=== PATIENT | female | born 1930 | race Caucasian/White ===

== ENCOUNTER 2019-06-30 05:19 | Inpatient (IN) | payer MEDICARE, OTHER ==
[~2019-06-30] VITALS: Ht 162.6 cm; Wt 46.5 kg
[2019-06-30] MEDS ORDERED: normal saline 1000ml 1,000 ML IV ONE (05:52)
[2019-06-30] MEDS ORDERED: diltiazem 5mg/ml 5ml inj. IV ONE ×4 (05:55→07:45)
[2019-06-30] MEDS ORDERED: normal saline 1000ML IV soln IVB ONE (06:35)
[2019-06-30 06:39] LABS: BASOPHILS % (AUTO) 0.6 % (0-1); EOSINOPHILS # (AUTO) 0.1 X10'3 (0-0.9); EOSINOPHILS % (AUTO) 1.1 % (0-6); HEMATOCRIT 35.5 % (35.0-45.0); HEMOGLOBIN 11.8 g/dl (12.0-16.0); LYMPHOCYTES # (AUTO) 1.6 X10'3 (1.1-4.8); MEAN CORPUSCULAR HEMOGLOBIN 28.8 PG (27.0-31.0); MEAN CORPUSCULAR HGB CONC 33.2 g/dL (33.0-36.5); MEAN CORPUSCULAR VOLUME 86.6 FL (78-98); MEAN PLATELET VOLUME 7.7 FL (7.4-10.4); MONOCYTES # (AUTO) 0.7 X10'3 (0-0.9); MONOCYTES % (AUTO) 7.9 % (2-12); NEUTROPHILS # (AUTO) 5.9 X10'3 (1.8-7.7); NEUTROPHILS % (AUTO) 71.4 % (42-75); PLATELET COUNT 244 X10'3 (140-440); WHITE BLOOD COUNT 8.3 X10'3 (4.5-11.0)
[2019-06-30 06:45] LABS: PARTIAL THROMBOPLASTIN TIME 28 SECONDS (22-32)
[2019-06-30 06:51] LABS: ETHANOL < 0.010 GM/DL (0.0-0.010); MAGNESIUM 1.9 MG/DL (1.5-2.4)
[2019-06-30 07:40] LABS: ALANINE AMINOTRANSFERASE 63 U/L (12-78); ALBUMIN 3.1 G/DL (3.4-5.0); ALKALINE PHOSPHATASE 127 IU/L (46-116); ANION GAP 8 (8-16); ASPARTATE AMINO TRANSFERASE 56 U/L (10-37); BILIRUBIN,TOTAL 1.1 MG/DL (0.1-1.0); BLOOD UREA NITROGEN 24 MG/DL (7-18); BUN/CREATININE RATIO 32.9 (6.6-38.0); CALCIUM 8.6 MG/DL (8.5-10.1); CHLORIDE 105 MMOL/L (99-107); CREATININE 0.73 MG/DL (0.40-0.90); GLUCOSE 100 MG/DL (70-104); SODIUM 139 MMOL/L (135-145); TOTAL CARBON DIOXIDE 25.8 MMOL/L (24-32); TOTAL PROTEIN 6.2 G/DL (6.4-8.2); eGFR 75 ML/MIN
[2019-06-30] MEDS ORDERED: diltiazem-NS 100mg/100ml 100 ML IV SCH (07:45)
[2019-06-30] MEDS ORDERED: diltiazem-D5W 125mg/125ml 125 ML IV SCH ×2 (07:45→08:15)
[2019-06-30] MEDS ORDERED: enoxaparin 100mg/ml syringe SUBCUT ONE (08:00)
[2019-06-30] MEDS ORDERED: enoxaparin 60mg/0.6ml syringe SUBCUT ONE (08:05)
[2019-06-30] MEDS ORDERED: potassium Cl 20 mEq SR tablet PO PRN (08:15)
[2019-06-30] MEDS ORDERED: acetaminophen 325mg tablet PO PRN (08:15)
[2019-06-30] MEDS ORDERED: mag hydrox/Alum hydrox/simeth 30ml oral suspension PO PRN (08:15)
[2019-06-30] MEDS ORDERED: magnesium 4gm in 100ml NS 100 ML IV PRN (08:15)
[2019-06-30] MEDS ORDERED: magnesium 2GM in 50ml NS 50 ML IV PRN (08:15)
[2019-06-30] MEDS ORDERED: magnesium hydroxide 30ml (MOM) UD suspension PO PRN (08:15)
[2019-06-30] MEDS ORDERED: heparin 10,000 units/1 ML INJ IV ONE (08:15)
[2019-06-30] MEDS ORDERED: ipratropium/albuterol 3ml nebule NEB PRN (08:15)
[2019-06-30] MEDS ORDERED: morphine 2 MG/ML inj. syringe IV PRN ×2 (08:15)
[2019-06-30] MEDS ORDERED: heparin 10,000 units/1 ML INJ IV PRN (08:15)
[2019-06-30] MEDS ORDERED: ondansetron/PF 4mg/2ml inj IV PRN (08:15)
[2019-06-30] MEDS ORDERED: potassium CL 10mEq/100ml bag 100 ML IV PRN ×2 (08:15)
[2019-06-30 08:41] LABS: CLARITY,URINE CLOUDY (Clear); COLOR,URINE YELLOW (Yellow); GLUCOSE, URINE NEGATIVE (Neg); KETONES,URINE TRACE mg/dl (Neg); LEUKOCYTE ESTERASE ,URINE MODERATE (Neg); NITRITES, URINE POSITIVE (Neg); OCCULT BLOOD,URINE TRACE-INTACT (Neg); PROTEIN,URINE 30 mg/dl (Neg); UROBILINOGEN,URINE 0.2 E.U/dL (0.2-1.0)
[2019-06-30 08:50] LABS: UA COLLECTION TYPE STRAIGHT CATH
[2019-06-30 08:51] LABS: BACTERIA,URINE 4+ /HPF (Neg); RBC,URINE 0-2 /HPF (0-2); SQUAMOUS EPITHELIAL CELL,UR NONE SEEN /LPF (FEW); WBC CLUMPS,URINE MANY /HPF (NEGATIVE); WBC,URINE TNTC /HPF (0-4)
[2019-06-30 08:54] LABS: BASOPHILS % (AUTO) 0.4 % (0-1); EOSINOPHILS % (AUTO) 0.3 % (0-6); HEMATOCRIT 32.1 % (35.0-45.0); HEMOGLOBIN 10.8 g/dl (12.0-16.0); LYMPHOCYTES # (AUTO) 1.1 X10'3 (1.1-4.8); LYMPHOCYTES % (AUTO) 13.7 % (21-51); MEAN CORPUSCULAR HEMOGLOBIN 29.1 PG (27.0-31.0); MEAN CORPUSCULAR HGB CONC 33.7 g/dL (33.0-36.5); MEAN CORPUSCULAR VOLUME 86.4 FL (78-98); MEAN PLATELET VOLUME 7.4 FL (7.4-10.4); MONOCYTES # (AUTO) 0.5 X10'3 (0-0.9); MONOCYTES % (AUTO) 5.9 % (2-12); NEUTROPHILS # (AUTO) 6.7 X10'3 (1.8-7.7); NEUTROPHILS % (AUTO) 79.7 % (42-75); PLATELET COUNT 203 X10'3 (140-440); RED BLOOD COUNT 3.71 X10'6 (4.20-5.60); RED CELL DISTRIBUTION WIDTH 15.1 % (11.5-14.5); WHITE BLOOD COUNT 8.4 X10'3 (4.5-11.0)
[2019-06-30] MEDS ORDERED: metoprolol tartrate 1mg/ml inj IV ONE (09:10)
--- NOTE | 2019-06-30 09:28 | NUR ---
PAGER ID: [phone] MESSAGE: [phone]-Tiffanie. Pt's 2nd Trop came back at 3.. Thank You. Venu MORSE [id number]
[2019-06-30] MEDS: heparin 25,000 UNIT/250ml bag 250 ML IV SCH ×2 (09:58→18:08)
[2019-06-30] MEDS: normal saline 1000ml 1,000 ML IV SCH ×3 (10:00→21:01)
[2019-06-30 10:10] VITALS: BP 114/51
[2019-06-30] MEDS ORDERED: atorvastatin 20mg tablet PO SCH ×2 (10:10→10:30)
[2019-06-30] MEDS: metoprolol tartrate 12.5mg (1/2 tablet) PO SCH ×2 (10:44→21:00)
[2019-06-30] MEDS: amiodarone 200mg tablet PO SCH (10:45)
[2019-06-30 11:00] VITALS: BP 97/52
--- NOTE | 2019-06-30 12:48 | NUR ---
PAGER ID: [phone] MESSAGE: Kiya Moreno. 313. 6hr troponin is 10.52. ext [phone] Katarzyna MORSE
[2019-06-30] MEDS ORDERED: ESCI5TAB12 PO (12:54)
[2019-06-30] MEDS ORDERED: ATOR20TA PO (12:54)
[2019-06-30] MEDS ORDERED: LISI10TA4 PO (12:54)
[2019-06-30 15:00] VITALS: BP 114/55
--- NOTE | 2019-06-30 16:03 | NUR ---
PAGER ID: [phone] MESSAGE: [phone]-Tiffanie. Can I add this pt's home Ativan schedule? Venu MORSE 0230
[2019-06-30 18:00] VITALS: BP 163/62
--- NOTE | 2019-06-30 18:00 | NUR ---
Patient in room MED 313. I have received report from MINI Lea, and had the opportunity to ask questions and assume patient care.
--- NOTE | 2019-06-30 18:31 | NUR ---
Problems reprioritized. Patient report given, questions answered & plan of care reviewed with Michelle MORSE.
--- NOTE | 2019-06-30 19:38 | NUR ---
Received critical trop, called answering service for Dr. Saenz.
--- NOTE | 2019-06-30 20:36 | NUR ---
ALEX for Dr. Saenz for elevated trop and run of Vtach at 20:19. Will call answering service again in 20 min
--- NOTE | 2019-06-30 20:43 | NUR ---
Dr. Uribe came by, jluis Mcgee and Gabriella, need to make sure we have betablocker on JAN.
[2019-06-30 21:25] LABS: MAGNESIUM 1.5 MG/DL (1.5-2.4); POTASSIUM 3.2 MMOL/L (3.5-5.1)
[2019-06-30 22:00] VITALS: BP 122/85
[2019-06-30] MEDS: potassium Cl 20 mEq SR tablet PO PRN (23:26)
[2019-07-01 01:39] LABS: BASOPHILS % (AUTO) 0.6 % (0-1); EOSINOPHILS % (AUTO) 0.6 % (0-6); HEMATOCRIT 25.9 % (35.0-45.0); HEMOGLOBIN 8.6 g/dl (12.0-16.0); LYMPHOCYTES # (AUTO) 1.3 X10'3 (1.1-4.8); LYMPHOCYTES % (AUTO) 21.4 % (21-51); MEAN CORPUSCULAR HEMOGLOBIN 28.8 PG (27.0-31.0); MEAN CORPUSCULAR HGB CONC 33.1 g/dL (33.0-36.5); MEAN CORPUSCULAR VOLUME 86.8 FL (78-98); MEAN PLATELET VOLUME 7.5 FL (7.4-10.4); MONOCYTES # (AUTO) 0.4 X10'3 (0-0.9); MONOCYTES % (AUTO) 6.2 % (2-12); NEUTROPHILS # (AUTO) 4.3 X10'3 (1.8-7.7); NEUTROPHILS % (AUTO) 71.2 % (42-75); PLATELET COUNT 154 X10'3 (140-440); RED BLOOD COUNT 2.98 X10'6 (4.20-5.60); RED CELL DISTRIBUTION WIDTH 15.1 % (11.5-14.5); WHITE BLOOD COUNT 6.1 X10'3 (4.5-11.0)
[2019-07-01 01:52] LABS: CHOL/HDL RATIO 1.9 (0.00-4.99); CHOLESTEROL 98 MG/DL (0-200); HDL CHOLESTEROL 51 MG/DL (35-60); LDL CHOLESTEROL 43 MG/DL (50-100); MAGNESIUM 1.4 MG/DL (1.5-2.4); TRIGLYCERIDES 31 MG/DL (20-135)
[2019-07-01 02:00] VITALS: BP 156/71
[2019-07-01] MEDS: potassium Cl 20 mEq SR tablet PO PRN (04:52)
[2019-07-01] MEDS: metoprolol tartrate 12.5mg (1/2 tablet) PO SCH (05:11)
--- NOTE | 2019-07-01 06:00 | NUR ---
Problems reprioritized. Patient report given, questions answered & plan of care reviewed with MINI Morgan.
[2019-07-01 06:30] VITALS: BP 142/56
--- NOTE | 2019-07-01 06:30 | NUR ---
RECEIVED REPORT, AND ASSUMED CARE OF PATIENT.PATIENT AWAKE ,ALERT, AND CONFUSED TO PLACE TIME AND EVENTS THIS AM .LABS SHOW A DROP IN HGB, AND POSITIVE UTI. CALL TO BE PLACED TO DR. TYLER. PATIENT DENIES CHEST PAIN, SOB, AND OR NAUSEA. ABDOMINAL TENDERNESS NOTED AT LEFT LOWER QUADRANT; PER PALPATION.HEPARIN GTT INFUSING AT 600 UNITS PER HOUR. Addendum: 07/01/19 at 0732 by Socorro Mcgarry RN Amended: Links added.
[2019-07-01] MEDS: K and/or MAG REPLACEMENT MC SCH (08:00)
[2019-07-01] MEDS ORDERED: non-formulary drug (Escitalopram Oxalate 1 TAB) PO SCH (08:00)
[2019-07-01] MEDS: clopidogrel 75mg tablet PO SCH (08:00)
[2019-07-01] MEDS ORDERED: lisinopril 10 MG tablet PO SCH ×2 (08:00→21:00)
[2019-07-01] MEDS ORDERED: non-formulary drug (Atorvastatin Calcium (Lipitor) 1 TAB) PO SCH (08:00)
[2019-07-01] MEDS: CITALOpram 10mg tablet PO SCH (08:56)
[2019-07-01] MEDS: atorvastatin 20mg tablet PO SCH (08:57)
[2019-07-01] MEDS: amiodarone 200mg tablet PO SCH (08:57)
[2019-07-01] MEDS: metoprolol tartrate 25mg tablet PO SCH ×2 (08:58→20:20)
[2019-07-01] MEDS: CefTRIAXone/D5W-Rocephin 1gm 50 ML IV SCH (09:01)
[2019-07-01 11:00] VITALS: BP_SYST 154; BP_SYST 162; BP_DIAS 73; BP_DIAS 76
[2019-07-01] MEDS: LORazepam 0.5 MG tablet PO PRN ×2 (12:47→23:56)
[2019-07-01 13:20] LABS: MAGNESIUM 3.1 MG/DL (1.5-2.4); POTASSIUM 4.4 MMOL/L (3.5-5.1)
[2019-07-01] MEDS: normal saline 1000ml 1,000 ML IV SCH ×2 (14:11→22:33)
[2019-07-01 15:00] VITALS: BP 148/69
[2019-07-01 15:23] LABS: HEMOGLOBIN 10.4 g/dl (12.0-16.0); MEAN CORPUSCULAR HEMOGLOBIN 29.2 PG (27.0-31.0); MEAN CORPUSCULAR HGB CONC 33.4 g/dL (33.0-36.5); MEAN CORPUSCULAR VOLUME 87.5 FL (78-98); MEAN PLATELET VOLUME 8.1 FL (7.4-10.4); PLATELET COUNT 200 X10'3 (140-440); RED BLOOD COUNT 3.55 X10'6 (4.20-5.60); RED CELL DISTRIBUTION WIDTH 15.7 % (11.5-14.5); WHITE BLOOD COUNT 7.3 X10'3 (4.5-11.0)
[2019-07-01 18:00] VITALS: BP 178/71
--- NOTE | 2019-07-01 18:00 | NUR ---
Patient in room MED 313. I have received report from MINI Morgan, and had the opportunity to ask questions and assume patient care.
--- NOTE | 2019-07-01 19:51 | NUR ---
PTT 50, Hep drips remain at 600 units/hr per protocol
[2019-07-01] MEDS: heparin 25,000 UNIT/250ml bag 250 ML IV SCH ×2 (19:54→20:17)
[2019-07-01 22:00] VITALS: BP 178/78
[2019-07-02 01:38] LABS: BASOPHILS % (AUTO) 0.4 % (0-1); EOSINOPHILS # (AUTO) 0.1 X10'3 (0-0.9); EOSINOPHILS % (AUTO) 0.7 % (0-6); HEMATOCRIT 30.3 % (35.0-45.0); HEMOGLOBIN 9.9 g/dl (12.0-16.0); LYMPHOCYTES # (AUTO) 1.5 X10'3 (1.1-4.8); LYMPHOCYTES % (AUTO) 18.4 % (21-51); MEAN CORPUSCULAR HEMOGLOBIN 28.7 PG (27.0-31.0); MEAN CORPUSCULAR HGB CONC 32.8 g/dL (33.0-36.5); MEAN CORPUSCULAR VOLUME 87.4 FL (78-98); MEAN PLATELET VOLUME 8.1 FL (7.4-10.4); MONOCYTES # (AUTO) 0.5 X10'3 (0-0.9); MONOCYTES % (AUTO) 6.6 % (2-12); NEUTROPHILS # (AUTO) 6.1 X10'3 (1.8-7.7); NEUTROPHILS % (AUTO) 73.9 % (42-75); PLATELET COUNT 199 X10'3 (140-440); RED BLOOD COUNT 3.46 X10'6 (4.20-5.60); WHITE BLOOD COUNT 8.2 X10'3 (4.5-11.0)
[2019-07-02 01:39] LABS: ALANINE AMINOTRANSFERASE 65 U/L (12-78); ALBUMIN 3.2 G/DL (3.4-5.0); ALKALINE PHOSPHATASE 115 IU/L (46-116); ANION GAP 8 (8-16); ASPARTATE AMINO TRANSFERASE 86 U/L (10-37); BILIRUBIN,TOTAL 0.9 MG/DL (0.1-1.0); BLOOD UREA NITROGEN 30 MG/DL (7-18); BUN/CREATININE RATIO 45.5 (6.6-38.0); CALCIUM 8.3 MG/DL (8.5-10.1); CHLORIDE 103 MMOL/L (99-107); CREATININE 0.66 MG/DL (0.40-0.90); GLUCOSE 96 MG/DL (70-104); SODIUM 136 MMOL/L (135-145); TOTAL CARBON DIOXIDE 24.8 MMOL/L (24-32); TOTAL PROTEIN 6.3 G/DL (6.4-8.2); eGFR 85 ML/MIN
[2019-07-02 02:00] VITALS: BP 164/74
[2019-07-02] MEDS: heparin 25,000 UNIT/250ml bag 250 ML IV SCH ×3 (02:09→13:55)
--- NOTE | 2019-07-02 06:00 | NUR ---
Reviewed and agreed with Leeroy Mcgee RN's charting.
--- NOTE | 2019-07-02 06:00 | NUR ---
Problems reprioritized. Patient report given, questions answered & plan of care reviewed with MINI Hector.
--- NOTE | 2019-07-02 06:30 | NUR ---
Patient in room MED 313. I have received report from Trista MORSE and had the opportunity to ask questions and assume patient care.
[2019-07-02 07:00] VITALS: BP 168/58
[2019-07-02] MEDS: K and/or MAG REPLACEMENT MC SCH (08:00)
[2019-07-02] MEDS: clopidogrel 75mg tablet PO SCH (09:01)
[2019-07-02] MEDS: metoprolol tartrate 25mg tablet PO SCH ×2 (09:05→20:28)
[2019-07-02] MEDS: CITALOpram 10mg tablet PO SCH (09:06)
[2019-07-02] MEDS: CefTRIAXone/D5W-Rocephin 1gm 50 ML IV SCH (09:06)
[2019-07-02] MEDS: amiodarone 200mg tablet PO SCH (09:06)
[2019-07-02] MEDS: atorvastatin 20mg tablet PO SCH (09:06)
[2019-07-02] MEDS: normal saline 1000ml 1,000 ML IV SCH ×2 (09:07→20:26)
[2019-07-02 11:00] VITALS: BP 124/73
--- NOTE | 2019-07-02 13:59 | NUR ---
Paged hospitalist, "Tawny [phone]- Please call re: [phone] heparin drip. nonemergent request." Received callback and orders to stop heparin drip and PTT lab draws. Plavix given this am. Will cont. to monitor.
[2019-07-02 15:00] VITALS: BP 170/77
[2019-07-02] MEDS ORDERED: ziprasidone IM 20mg inj **IM only IM PRN (17:45)
--- NOTE | 2019-07-02 17:45 | NUR ---
Paged hospitalist, "kristy [phone]- please call this nurse re: [phone] ACCE confusion" Wish to ask him for something that will help her rest that's natural and will not increase confusion.
--- NOTE | 2019-07-02 17:54 | NUR ---
Discussed situation re: patient and hospitalist going to order sitter to help redirect and a sleep aid. Patient will be discharging back to [facility] care facility- [facility] tomorrow at 11:15 am.
[2019-07-02 18:00] VITALS: BP 157/73
--- NOTE | 2019-07-02 18:32 | NUR ---
Problems reprioritized. Patient report given, questions answered & plan of care reviewed with Sorin MORSE.
[2019-07-02] MEDS: lisinopril 20mg tablet PO SCH (20:28)
[2019-07-02 22:00] VITALS: BP 145/61
[2019-07-03] MEDS: cephalexin 500mg capsule PO SCH ×4 (00:18→23:13)
[2019-07-03 02:00] VITALS: BP 145/64
[2019-07-03 06:00] VITALS: BP 138/65
[2019-07-03 06:26] LABS: BASOPHILS % (AUTO) 0.7 % (0-1); EOSINOPHILS # (AUTO) 0.1 X10'3 (0-0.9); EOSINOPHILS % (AUTO) 1.2 % (0-6); HEMATOCRIT 22.3 % (35.0-45.0); HEMOGLOBIN 7.5 g/dl (12.0-16.0); LYMPHOCYTES # (AUTO) 1.8 X10'3 (1.1-4.8); LYMPHOCYTES % (AUTO) 31.4 % (21-51); MEAN CORPUSCULAR HEMOGLOBIN 29.5 PG (27.0-31.0); MEAN CORPUSCULAR HGB CONC 33.4 g/dL (33.0-36.5); MEAN CORPUSCULAR VOLUME 88.2 FL (78-98); MEAN PLATELET VOLUME 8.4 FL (7.4-10.4); MONOCYTES # (AUTO) 0.4 X10'3 (0-0.9); MONOCYTES % (AUTO) 7.3 % (2-12); NEUTROPHILS # (AUTO) 3.4 X10'3 (1.8-7.7); NEUTROPHILS % (AUTO) 59.4 % (42-75); PLATELET COUNT 140 X10'3 (140-440); RED BLOOD COUNT 2.53 X10'6 (4.20-5.60); RED CELL DISTRIBUTION WIDTH 15.5 % (11.5-14.5); WHITE BLOOD COUNT 5.6 X10'3 (4.5-11.0)
[2019-07-03] MEDS: normal saline 1000ml 1,000 ML IV SCH (07:53)
[2019-07-03] MEDS: atorvastatin 20mg tablet PO SCH (07:54)
[2019-07-03] MEDS: CITALOpram 10mg tablet PO SCH (07:54)
[2019-07-03] MEDS: amiodarone 200mg tablet PO SCH (07:54)
[2019-07-03] MEDS: clopidogrel 75mg tablet PO SCH (07:54)
[2019-07-03] MEDS: metoprolol tartrate 25mg tablet PO SCH ×2 (07:54→20:19)
[2019-07-03] MEDS: K and/or MAG REPLACEMENT MC SCH (08:00)
[2019-07-03 11:00] VITALS: BP 132/65
--- NOTE | 2019-07-03 11:57 | NUR ---
DR. SHAIKH AT BEDSIDE. REPEAT HEMOGRAM ORDERED. HAWA EXPLAINED TO PATIENT THAT IF NUMBERS ARE BETTER SHE COULD PROBABLY BE DISCHARGED.
[2019-07-03 12:04] LABS: HEMATOCRIT 25.5 % (35.0-45.0); HEMOGLOBIN 8.5 g/dl (12.0-16.0); MEAN CORPUSCULAR HEMOGLOBIN 29.1 PG (27.0-31.0); MEAN CORPUSCULAR HGB CONC 33.2 g/dL (33.0-36.5); MEAN CORPUSCULAR VOLUME 87.8 FL (78-98); MEAN PLATELET VOLUME 7.9 FL (7.4-10.4); PLATELET COUNT 243 X10'3 (140-440); RED BLOOD COUNT 2.91 X10'6 (4.20-5.60); RED CELL DISTRIBUTION WIDTH 15.5 % (11.5-14.5); WHITE BLOOD COUNT 8.3 X10'3 (4.5-11.0)
--- NOTE | 2019-07-03 12:45 | NUR ---
patient stated "i'm going on hunger strike until you people let me go home". Informed patient that the doctor has not written orders. patient stated "i don't care what the doctor thinks, i want to go home so i can in peace there"
--- NOTE | 2019-07-03 12:55 | NUR ---
PAGER ID: [phone] MESSAGE: [phone]: Tiffanie - H/H up to 8.5.5. Daughter, Marilu is POA #[phone]. pt resident of [facility]. if discharged we can have case mgt set up transport for tomorrow. ty nurse tim/art [id number]
[2019-07-03] MEDS ORDERED: METO25TA6 PO (13:09)
[2019-07-03] MEDS ORDERED: AMIO200T61 PO (13:09)
[2019-07-03] MEDS ORDERED: CLOP75TA35 PO (13:09)
[2019-07-03] MEDS ORDERED: APIX5TAB3 PO (13:11)
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
--- NOTE | 2019-07-03 13:30 | NUR ---
PAGER ID: [phone] MESSAGE: [phone]: MALI - do you mind if we send her to surgical or ortho/neuro? with or without telemetry monitoring? ty nurse tim [phone]
--- NOTE | 2019-07-03 14:45 | NUR ---
Pt is not wanting to eat lunch. She states that she is on a hunger strike until she can go home.
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
--- NOTE | 2019-07-03 16:33 | NUR ---
patient is a resident at [facility]. Staff will arrange for follow-up appointment date/time Addendum: 07/03/19 at 1634 by Adelia Li RN Amended: Links added.
--- NOTE | 2019-07-03 16:41 | NUR ---
follow-up appointment with Dr. Saenz Spoke with Sandra about scheduling follow up appointment for this patient. Sandra informed that she will request records from [facility] and will reach out to the patient to schedule the appointment. I informed Sandra that patient is a resident of [facility]. Sandra stated she would make a note in the patients chart.
[2019-07-03 17:46] VITALS: BP 134/65
[2019-07-03 18:00] VITALS: BP 135/55
[2019-07-03] MEDS: lactobacillus rhamnosus 10,000 MMU CELLS/CAPSULE PO SCH (20:18)
[2019-07-03] MEDS: apixaban 2.5mg tablet PO SCH (20:19)
[2019-07-03] MEDS: lisinopril 20mg tablet PO SCH (20:19)
[2019-07-04 05:58] LABS: BASOPHILS % (AUTO) 0.5 % (0-1); EOSINOPHILS % (AUTO) 0.5 % (0-6); HEMATOCRIT 22.1 % (35.0-45.0); HEMOGLOBIN 7.5 g/dl (12.0-16.0); LYMPHOCYTES # (AUTO) 1.7 X10'3 (1.1-4.8); LYMPHOCYTES % (AUTO) 22.2 % (21-51); MEAN CORPUSCULAR HEMOGLOBIN 29.2 PG (27.0-31.0); MEAN CORPUSCULAR HGB CONC 33.7 g/dL (33.0-36.5); MEAN CORPUSCULAR VOLUME 86.6 FL (78-98); MEAN PLATELET VOLUME 7.9 FL (7.4-10.4); MONOCYTES # (AUTO) 0.5 X10'3 (0-0.9); MONOCYTES % (AUTO) 5.9 % (2-12); NEUTROPHILS # (AUTO) 5.5 X10'3 (1.8-7.7); NEUTROPHILS % (AUTO) 70.9 % (42-75); PLATELET COUNT 191 X10'3 (140-440); RED BLOOD COUNT 2.55 X10'6 (4.20-5.60); RED CELL DISTRIBUTION WIDTH 15.4 % (11.5-14.5); WHITE BLOOD COUNT 7.7 X10'3 (4.5-11.0)
[2019-07-04] MEDS: K and/or MAG REPLACEMENT MC SCH (08:00)
[2019-07-04] MEDS: apixaban 2.5mg tablet PO SCH ×2 (08:00→20:00)
[2019-07-04] MEDS: clopidogrel 75mg tablet PO SCH (08:26)
[2019-07-04] MEDS: lactobacillus rhamnosus 10,000 MMU CELLS/CAPSULE PO SCH ×2 (08:26→20:24)
[2019-07-04] MEDS: CITALOpram 10mg tablet PO SCH (08:26)
[2019-07-04] MEDS: atorvastatin 20mg tablet PO SCH (08:26)
[2019-07-04] MEDS: cephalexin 500mg capsule PO SCH ×2 (08:26→16:08)
[2019-07-04] MEDS: amiodarone 200mg tablet PO SCH (08:26)
--- NOTE | 2019-07-04 08:27 | NUR ---
PAGER ID: [phone] MESSAGE: [phone]: MALI: CBC labs were drawn this AM. h/h down again to 7.5/22.1. patient symptomatic.
[2019-07-04] MEDS: metoprolol tartrate 25mg tablet PO SCH ×2 (08:30→20:24)
[2019-07-04 11:26] LABS: HEMATOCRIT 22.6 % (35.0-45.0); HEMOGLOBIN 7.6 g/dl (12.0-16.0); MEAN CORPUSCULAR HEMOGLOBIN 29.3 PG (27.0-31.0); MEAN CORPUSCULAR HGB CONC 33.6 g/dL (33.0-36.5); MEAN CORPUSCULAR VOLUME 87.2 FL (78-98); MEAN PLATELET VOLUME 8.1 FL (7.4-10.4); PLATELET COUNT 201 X10'3 (140-440); RED BLOOD COUNT 2.59 X10'6 (4.20-5.60); RED CELL DISTRIBUTION WIDTH 15.3 % (11.5-14.5); WHITE BLOOD COUNT 9.9 X10'3 (4.5-11.0)
--- NOTE | 2019-07-04 11:32 | NUR ---
PAGER ID: [phone] MESSAGE: 313: MALI - repeat hemogram unchanged from AM lab draw. nurse ART ext [phone]
--- NOTE | 2019-07-04 14:30 | NUR ---
Initial: Pt admit w/ NSTEMI and UTI currently 25% avg PO or refusing meals. AOx2. Ensure pudding TIDWM added for additional protein/kcal needs. No GI symptoms noted. Will continue to monitor. Rec: 1. continue heart healthy/mechanical soft diet 2. ensure pudding TIDWM 3. wt per rx Addendum: 07/04/19 at [address] Amended: Links added.
[2019-07-04 18:00] VITALS: BP 117/48
--- NOTE | 2019-07-04 18:20 | NUR ---
Patient in room MED 313. I have received report from Art, RN and had the opportunity to ask questions and assume patient care.
--- NOTE | 2019-07-04 18:41 | NUR ---
Orientee documentation: I have reviewed and agree with all interventions, assessments performed and documented by MINI Garcia.
--- NOTE | 2019-07-04 19:20 | NUR ---
Patient in room ACCE UNIT. I have received report from Shalonda MORSE and had the opportunity to ask questions and assume patient care when patient arrives.
--- NOTE | 2019-07-04 19:27 | NUR ---
Problems reprioritized. Patient report given, questions answered & plan of care reviewed with MINI Beckham.
[2019-07-04 19:34] LABS: OCCULT BLOOD STOOL POSITIVE (Neg)
[2019-07-04] MEDS: lisinopril 20mg tablet PO SCH (20:25)
[2019-07-04 20:40] VITALS: BP 145/68
[2019-07-04 22:06] LABS: MEAN CORPUSCULAR HEMOGLOBIN 29.6 PG (27.0-31.0); MEAN CORPUSCULAR HGB CONC 33.6 g/dL (33.0-36.5); MEAN PLATELET VOLUME 8.3 FL (7.4-10.4); PLATELET COUNT 191 X10'3 (140-440); RED BLOOD COUNT 2.11 X10'6 (4.20-5.60); RED CELL DISTRIBUTION WIDTH 15.3 % (11.5-14.5); WHITE BLOOD COUNT 7.4 X10'3 (4.5-11.0)
[2019-07-04 22:08] LABS: HEMOGLOBIN 6.2 g/dl (12.0-16.0)
[2019-07-04 22:09] LABS: HEMATOCRIT 18.6 % (35.0-45.0)
[2019-07-04 23:08] VITALS: BP 145/68
[2019-07-04 23:43] VITALS: BP 126/62
[2019-07-05] VITALS (22 sets, daily range): BP systolic 107–169; BP diastolic 43–80
[2019-07-05] MEDS: pantoprazole 40MG/NS 100ML BAG 100 ML IV SCH ×6 (00:26→22:27)
[2019-07-05] MEDS: cephalexin 500mg capsule PO SCH ×3 (00:34→16:50)
--- NOTE | 2019-07-05 06:24 | NUR ---
Problems reprioritized. Patient report given, questions answered & plan of care reviewed with Evangelina and Adelia RNS.
--- NOTE | 2019-07-05 06:30 | NUR ---
Patient in room [facility] 354. I have received report from Chapincito MORSE and had the opportunity to ask questions and assume patient care.
[2019-07-05] MEDS: K and/or MAG REPLACEMENT MC SCH (08:00)
[2019-07-05] MEDS: CITALOpram 10mg tablet PO SCH (08:00)
[2019-07-05] MEDS: amiodarone 200mg tablet PO SCH (09:40)
[2019-07-05] MEDS: lactobacillus rhamnosus 10,000 MMU CELLS/CAPSULE PO SCH ×2 (09:40→21:00)
[2019-07-05] MEDS: atorvastatin 20mg tablet PO SCH (09:41)
[2019-07-05] MEDS: metoprolol tartrate 25mg tablet PO SCH ×2 (09:42→21:01)
[2019-07-05 10:32] LABS: BASOPHILS % (AUTO) 0.5 % (0-1); EOSINOPHILS % (AUTO) 0.2 % (0-6); HEMATOCRIT 29.1 % (35.0-45.0); HEMOGLOBIN 9.8 g/dl (12.0-16.0); LYMPHOCYTES # (AUTO) 1.1 X10'3 (1.1-4.8); LYMPHOCYTES % (AUTO) 17.2 % (21-51); MEAN CORPUSCULAR HEMOGLOBIN 30.3 PG (27.0-31.0); MEAN CORPUSCULAR HGB CONC 33.8 g/dL (33.0-36.5); MEAN CORPUSCULAR VOLUME 89.5 FL (78-98); MEAN PLATELET VOLUME 8.1 FL (7.4-10.4); MONOCYTES # (AUTO) 0.4 X10'3 (0-0.9); MONOCYTES % (AUTO) 6.7 % (2-12); NEUTROPHILS % (AUTO) 75.4 % (42-75); PLATELET COUNT 166 X10'3 (140-440); RED BLOOD COUNT 3.25 X10'6 (4.20-5.60); RED CELL DISTRIBUTION WIDTH 15.1 % (11.5-14.5); WHITE BLOOD COUNT 6.7 X10'3 (4.5-11.0)
[2019-07-05] MEDS ORDERED: fentaNYL/PF 50MCG/1 ML 2ML syringe ONE (12:22)
[2019-07-05] MEDS ORDERED: LIDOcaine Viscous 15ml cup ONE (12:23)
[2019-07-05] MEDS ORDERED: MIDAZolam 5mg/5ml vial ONE (12:23)
[2019-07-05] MEDS ORDERED: PEG 3350/Na sulf,bicarb,Cl/KCl oral sol 4 liter bottle PO ONE (13:25)
[2019-07-05] MEDS ORDERED: magnesium citrate 296ml oral solution PO ONE (13:25)
[2019-07-05] MEDS: bisacodyl 5mg tablet.DR PO SCH ×2 (14:34→21:00)
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
--- NOTE | 2019-07-05 18:26 | NUR ---
Problems reprioritized. Patient report given, questions answered & plan of care reviewed with Sahra Garcia RN.
--- NOTE | 2019-07-05 18:36 | NUR ---
Patient in room [facility] 354. I have received report from MINI Delvalle and had the opportunity to ask questions and assume patient care. Addendum: 07/05/19 at 1837 by Donna Fuller RN Amended: Links added.
[2019-07-05] MEDS: lisinopril 20mg tablet PO SCH (21:01)
[2019-07-06] VITALS (9 sets, daily range): BP systolic 122–168; BP diastolic 55–89
[2019-07-06] MEDS: pantoprazole 40MG/NS 100ML BAG 100 ML IV SCH ×3 (04:26→10:28)
--- NOTE | 2019-07-06 06:44 | NUR ---
Patient in room [facility] 354. I have received report from Sahra Garcia RN and had the opportunity to ask questions and assume patient care.
--- NOTE | 2019-07-06 06:45 | NUR ---
Problems reprioritized. Patient report given, questions answered & plan of care reviewed with MINI Mcclain.
[2019-07-06] MEDS: atorvastatin 20mg tablet PO SCH (07:58)
[2019-07-06] MEDS: lactobacillus rhamnosus 10,000 MMU CELLS/CAPSULE PO SCH ×2 (07:58→19:43)
[2019-07-06] MEDS: bisacodyl 5mg tablet.DR PO SCH ×2 (07:58→19:47)
[2019-07-06] MEDS: amiodarone 200mg tablet PO SCH (07:58)
[2019-07-06] MEDS: CITALOpram 10mg tablet PO SCH (07:58)
[2019-07-06] MEDS: metoprolol tartrate 25mg tablet PO SCH ×2 (07:59→19:43)
[2019-07-06] MEDS: K and/or MAG REPLACEMENT MC SCH (08:00)
--- NOTE | 2019-07-06 10:56 | NUR ---
Family here to visit patient, encouraged family to encourage patient to drink Golytly to complete colonoscopy today. BM is turning towards a yellow tone and could be seen through if held up in a glass.
[2019-07-06 11:42] LABS: HEMATOCRIT 30.2 % (35.0-45.0); HEMOGLOBIN 10.3 g/dl (12.0-16.0); MEAN CORPUSCULAR HEMOGLOBIN 30.4 PG (27.0-31.0); MEAN CORPUSCULAR HGB CONC 33.9 g/dL (33.0-36.5); MEAN CORPUSCULAR VOLUME 89.6 FL (78-98); MEAN PLATELET VOLUME 8.1 FL (7.4-10.4); PLATELET COUNT 200 X10'3 (140-440); RED BLOOD COUNT 3.37 X10'6 (4.20-5.60); RED CELL DISTRIBUTION WIDTH 15.4 % (11.5-14.5)
--- NOTE | 2019-07-06 12:11 | NUR ---
Patient off the unit to GI for Colonoscopy
[2019-07-06] MEDS ORDERED: fentaNYL/PF 50MCG/1 ML 2ML syringe ONE (12:18)
[2019-07-06] MEDS ORDERED: MIDAZolam 5mg/5ml vial ONE (12:18)
--- NOTE | 2019-07-06 14:30 | NUR ---
PHONED DAUGHTER IN [place], NOTIFIED HER OF THE FINDINGS AND RECOMMENDATIONS OF COLONOSCOPY. APPRECIATIVE OF CALL.
--- NOTE | 2019-07-06 16:16 | NUR ---
Paged Dr. Painting concerning patients Protonix gtt whether to continue or dc.
--- NOTE | 2019-07-06 18:17 | NUR ---
Received report from MINI Mcclain. Patient is awake and alert on room air, in no apparent distress. Having dinner. Call light and items of frequent use within reach. Will continue to monitor.
--- NOTE | 2019-07-06 18:21 | NUR ---
Problems reprioritized. Patient report given, questions answered & plan of care reviewed with Allison MORSE.
[2019-07-06] MEDS: lisinopril 20mg tablet PO SCH (19:47)
[2019-07-07] VITALS: BP 144/57
[2019-07-07 06:30] VITALS: BP 135/56
--- NOTE | 2019-07-07 06:30 | NUR ---
Patient in room [facility] 354. I have received report from MINI Cooper and had the opportunity to ask questions and assume patient care.
--- NOTE | 2019-07-07 06:38 | NUR ---
Problems reprioritized. Patient report given, questions answered & plan of care reviewed with MINI Wick.
[2019-07-07] MEDS: K and/or MAG REPLACEMENT MC SCH (07:11)
[2019-07-07] MEDS: lisinopril 20mg tablet PO SCH (09:30)
[2019-07-07] MEDS: atorvastatin 20mg tablet PO SCH (09:30)
[2019-07-07] MEDS: amiodarone 200mg tablet PO SCH (09:30)
[2019-07-07] MEDS: lactobacillus rhamnosus 10,000 MMU CELLS/CAPSULE PO SCH (09:30)
[2019-07-07] MEDS: metoprolol tartrate 25mg tablet PO SCH (09:31)
[2019-07-07] MEDS: bisacodyl 5mg tablet.DR PO SCH (09:31)
[2019-07-07] MEDS: CITALOpram 10mg tablet PO SCH (09:31)
[2019-07-07 11:00] VITALS: BP 153/58
[2019-07-07 12:50] LABS: HEMATOCRIT 29.2 % (35.0-45.0); HEMOGLOBIN 9.8 g/dl (12.0-16.0); MEAN CORPUSCULAR HEMOGLOBIN 30.8 PG (27.0-31.0); MEAN CORPUSCULAR HGB CONC 33.7 g/dL (33.0-36.5); MEAN CORPUSCULAR VOLUME 91.2 FL (78-98); MEAN PLATELET VOLUME 8.2 FL (7.4-10.4); PLATELET COUNT 207 X10'3 (140-440); RED CELL DISTRIBUTION WIDTH 15.6 % (11.5-14.5); WHITE BLOOD COUNT 8.3 X10'3 (4.5-11.0)
--- NOTE | 2019-07-07 16:10 | NUR ---
DC inst provided to pt. IV DC'd, tip intact. All belongings sent w/pt. [employer] [employer] personnel assisted pt via WC to van.
== END 2019-07-07 16:11 | DRG 377 ==
LOC: ER 05:20 → MED 3N 10:05 → CMPBEDREQ 21:12 → SUR 3N 07-04 20:33
PROVIDERS: ADMIT Family Medicine; ATTEND Family Medicine
PROC: 30233P1 Transfusion of Nonautologous Frozen Red Cells into Peripheral Vein, Percutaneous Approach (ICD-10-PCS; principal; 2019-07-04)
PROC: 30233P1 Transfusion of Nonautologous Frozen Red Cells into Peripheral Vein, Percutaneous Approach (ICD-10-PCS; 2019-07-05)
PROC: 0DB68ZX Excision of Stomach, Via Natural or Artificial Opening Endoscopic, Diagnostic (ICD-10-PCS; 2019-07-05)
PROC: 0DJD8ZZ Inspection of Lower Intestinal Tract, Via Natural or Artificial Opening Endoscopic (ICD-10-PCS; 2019-07-06)
DX: K57.31 Diverticulosis of large intestine without perforation or abscess with bleeding (principal); I21.4 Non-ST elevation (NSTEMI) myocardial infarction; N39.0 Urinary tract infection, site not specified; D62 Acute posthemorrhagic anemia; I47.2 Ventricular tachycardia; E78.5 Hyperlipidemia, unspecified; F03.90 Unspecified dementia, unspecified severity, without behavioral disturbance, psychotic disturbance, mood disturbance, and anxiety; I08.3 Combined rheumatic disorders of mitral, aortic and tricuspid valves; B96.20 Unspecified Escherichia coli [E. coli] as the cause of diseases classified elsewhere; I10 Essential (primary) hypertension; K59.09 Other constipation; I48.0 Paroxysmal atrial fibrillation; Z90.49 Acquired absence of other specified parts of digestive tract; Z88.6 Allergy status to analgesic agent; Z91.018 Allergy to other foods; Z79.899 Other long term (current) drug therapy; Z82.49 Family history of ischemic heart disease and other diseases of the circulatory system; Z87.891 Personal history of nicotine dependence; Z90.710 Acquired absence of both cervix and uterus; Z90.722 Acquired absence of ovaries, bilateral; Z84.89 Family history of other specified conditions
CPT/HCPCS: 36415; 43239; 45378; 71045; 74018; 80053; 80061; 80320; 81001; 82272; 83735; 83880; 84132; 84484; 85025; 85027; 85610; 85730; 86885; 86900; 86901; 86920; 87077; 87081; 87088; 87186; 88305; 88342; 92508; 92616; 93005; 93306; 94667; 94668; 94760; 97116; 97161; 97530; 99152; 99153; 99285; A4615; A4620; C9113; G0378; J0696; J1644; J1650; J2250; J3010; J3475; J3490; J7030; J7040; P9016

== ENCOUNTER 2019-10-28 15:03 | Emergency (ER) | payer MEDICARE, OTHER ==
[~2019-10-28] VITALS: Ht 160 cm; Wt 49.0 kg
[~2019-10-28 15:03] MED LIST: AMIO200T61 PO; ATOR20TA PO; ESCI5TAB12 PO; LISI10TA4 PO; METO25TA6 PO
[2019-10-28 15:16] VITALS: BP 151/56
--- NOTE | 2019-10-28 17:07 | NUR ---
Report given to ISIDRO Ngo, Spoke with [employer], ETA for transport 1730.
== END 2019-10-28 18:51 | disposition home or self-care (01) ==
LOC: ER 15:03
DX: S32.10XA Unspecified fracture of sacrum, initial encounter for closed fracture (principal); I48.91 Unspecified atrial fibrillation; G30.9 Alzheimer's disease, unspecified; F02.80 Dementia in other diseases classified elsewhere, unspecified severity, without behavioral disturbance, psychotic disturbance, mood disturbance, and anxiety; Z88.6 Allergy status to analgesic agent; Z91.018 Allergy to other foods; Z79.899 Other long term (current) drug therapy; W18.39XA Other fall on same level, initial encounter; Y93.89 Activity, other specified; Y92.89 Other specified places as the place of occurrence of the external cause; Y99.8 Other external cause status
CPT/HCPCS: 70450; 72131; 72192; 99285

== ENCOUNTER 2020-06-08 16:08 | Inpatient (IN) | payer MEDICARE ==
[~2020-06-08] VITALS: Ht 157.5 cm; Wt 50.2 kg
[2020-06-08 17:41] LABS: ALANINE AMINOTRANSFERASE 14 U/L (12-78); ALBUMIN 3.7 G/DL (3.4-5.0); ALBUMIN/GLOBULIN RATIO 0.9 (1.1-1.5); ALKALINE PHOSPHATASE 82 IU/L (46-116); ANION GAP 9 (8-16); ASPARTATE AMINO TRANSFERASE 23 U/L (10-37); BILIRUBIN,TOTAL 0.8 MG/DL (0.1-1.0); BLOOD UREA NITROGEN 27 MG/DL (7-18); BUN/CREATININE RATIO 25.5 (6.6-38.0); CALCIUM 9.6 MG/DL (8.5-10.1); CHLORIDE 102 MMOL/L (99-107); CREATININE 1.06 MG/DL (0.40-0.90); GLUCOSE 86 MG/DL (70-104); SODIUM 136 MMOL/L (135-145); TOTAL CARBON DIOXIDE 25.2 MMOL/L (24-32); TOTAL PROTEIN 7.6 G/DL (6.4-8.2); eGFR 49 ML/MIN
[2020-06-08] MEDS ORDERED: DIVA125C2 PO (17:42)
[2020-06-08] MEDS ORDERED: METO25TA6 PO (17:42)
[2020-06-08] MEDS ORDERED: LORA-269 PO (17:42)
[2020-06-08] MEDS ORDERED: CETI10TA18 PO (17:42)
[2020-06-08] MEDS ORDERED: LEVO750T21 PO (17:42)
[2020-06-08] MEDS ORDERED: OLAN5TAB26 PO (17:42)
[2020-06-08] MEDS ORDERED: AMIO200T27 PO (17:42)
[2020-06-08] MEDS ORDERED: LEVO25TA7 PO (17:42)
[2020-06-08] MEDS ORDERED: HYDR-4383 PO (17:42)
[2020-06-08] MEDS ORDERED: DONE5TAB7 PO (17:42)
[2020-06-08] MEDS ORDERED: LISI40TA4 PO (17:42)
[2020-06-08] MEDS ORDERED: AMLO5TAB PO (17:42)
[2020-06-08] MEDS ORDERED: CITA10TA9 PO (17:42)
[2020-06-08] MEDS ORDERED: magnesium hydroxide 30ml (MOM) UD suspension PO PRN (18:30)
[2020-06-08] MEDS ORDERED: mag hydrox/Alum hydrox/simeth 30ml oral suspension PO PRN (18:30)
[2020-06-08] MEDS ORDERED: magnesium Cl slow-release 64mg tablet PO PRN (18:30)
[2020-06-08] MEDS ORDERED: metoclopramide 5 mg/ml inj IV PRN (18:30)
[2020-06-08] MEDS ORDERED: magnesium 4gm in 100ml NS 100 ML IV PRN (18:30)
[2020-06-08] MEDS ORDERED: ondansetron/PF 4mg/2ml inj IV PRN (18:30)
[2020-06-08] MEDS ORDERED: HYDROcodone/acetaminophen 5mg/325mg tablet PO PRN ×2 (18:30→18:40)
[2020-06-08] MEDS ORDERED: potassium Cl 20 mEq SR tablet PO PRN (18:30)
[2020-06-08] MEDS ORDERED: acetaminophen 325mg tablet PO PRN ×2 (18:30)
[2020-06-08] MEDS ORDERED: ipratropium/albuterol 3ml nebule NEB PRN (18:30)
[2020-06-08] MEDS ORDERED: HYDROcodone/acetaminophen 10/325mg tab PO PRN (18:30)
[2020-06-08] MEDS ORDERED: HYDROmorphone inj. 0.5 MG/0.5 ML DISP.SYRIN IV PRN (18:30)
[2020-06-08] MEDS ORDERED: potassium CL 10mEq/100ml bag 100 ML IV PRN ×2 (18:30)
[2020-06-08] MEDS ORDERED: bisacodyl 10mg suppository rectal RC PRN (18:30)
[2020-06-08] MEDS ORDERED: magnesium 2GM in 50ml NS 50 ML IV PRN (18:30)
[2020-06-08] MEDS ORDERED: acetaminophen 650mg rectal suppository RC PRN (18:30)
[2020-06-08 18:51] LABS: BASOPHILS % (AUTO) 0.6 % (0-1); EOSINOPHILS % (AUTO) 0.6 % (0-6); HEMATOCRIT 40.7 % (35.0-45.0); HEMOGLOBIN 13.2 g/dl (12.0-16.0); LYMPHOCYTES # (AUTO) 1.4 X10'3 (1.1-4.8); LYMPHOCYTES % (AUTO) 19.2 % (21-51); MEAN CORPUSCULAR HEMOGLOBIN 28.8 PG (27.0-31.0); MEAN CORPUSCULAR HGB CONC 32.4 g/dL (33.0-36.5); MEAN CORPUSCULAR VOLUME 88.9 FL (78-98); MEAN PLATELET VOLUME 7.8 FL (7.4-10.4); MONOCYTES # (AUTO) 0.5 X10'3 (0-0.9); NEUTROPHILS # (AUTO) 5.5 X10'3 (1.8-7.7); NEUTROPHILS % (AUTO) 72.6 % (42-75); PLATELET COUNT 191 X10'3 (140-440); RED BLOOD COUNT 4.58 X10'6 (4.20-5.60); RED CELL DISTRIBUTION WIDTH 16.1 % (11.5-14.5); WHITE BLOOD COUNT 7.6 X10'3 (4.5-11.0)
[2020-06-08] MEDS: K and/or MAG REPLACEMENT MC SCH (19:30)
[2020-06-08 19:48] VITALS: BP 188/71
[2020-06-08 20:14] LABS: VALPROATE 44.8 UG/ML (50-100)
[2020-06-08] MEDS: metoprolol tartrate 25mg tablet PO SCH (20:19)
[2020-06-08] MEDS: divalproex sod 125mg sprinkle cap PO SCH (20:19)
[2020-06-08] MEDS: lisinopril 20mg tablet PO SCH (20:19)
[2020-06-08] MEDS: heparin, porcine 5000 units/ml vial SQ SCH (20:20)
[2020-06-08] MEDS: furosemide 20 MG/2 ML vial IV SCH (20:20)
[2020-06-08] MEDS: CefTRIAXone/D5W-Rocephin 1gm 50 ML IV SCH (20:21)
[2020-06-08] MEDS: azithromycin/NS 500mg/250ml 250 ML IV SCH (20:21)
[2020-06-08] MEDS: ipratropium/albuterol 3ml nebule NEB SCH ×2 (20:38→23:00)
[2020-06-08] MEDS ORDERED: temazepam 15mg capsule PO PRN (21:00)
[2020-06-08 22:00] VITALS: BP 99/42
[2020-06-09 06:00] VITALS: BP 178/75
--- NOTE | 2020-06-09 06:18 | NUR ---
REPORT GIVEN TO MINI JEFFERSON.
[2020-06-09 06:54] LABS: BASOPHILS % (AUTO) 0.6 % (0-1); EOSINOPHILS # (AUTO) 0.1 X10'3 (0-0.9); EOSINOPHILS % (AUTO) 1.4 % (0-6); HEMATOCRIT 35.6 % (35.0-45.0); HEMOGLOBIN 11.4 g/dl (12.0-16.0); LYMPHOCYTES # (AUTO) 1.1 X10'3 (1.1-4.8); LYMPHOCYTES % (AUTO) 20.1 % (21-51); MEAN CORPUSCULAR HEMOGLOBIN 28.2 PG (27.0-31.0); MEAN CORPUSCULAR HGB CONC 32.1 g/dL (33.0-36.5); MEAN CORPUSCULAR VOLUME 87.9 FL (78-98); MEAN PLATELET VOLUME 7.8 FL (7.4-10.4); MONOCYTES # (AUTO) 0.6 X10'3 (0-0.9); MONOCYTES % (AUTO) 10.3 % (2-12); NEUTROPHILS # (AUTO) 3.8 X10'3 (1.8-7.7); NEUTROPHILS % (AUTO) 67.6 % (42-75); PLATELET COUNT 166 X10'3 (140-440); RED BLOOD COUNT 4.05 X10'6 (4.20-5.60); RED CELL DISTRIBUTION WIDTH 15.7 % (11.5-14.5); WHITE BLOOD COUNT 5.6 X10'3 (4.5-11.0)
[2020-06-09] MEDS: ipratropium/albuterol 3ml nebule NEB SCH ×5 (07:05→23:00)
[2020-06-09 07:15] LABS: ALANINE AMINOTRANSFERASE 18 U/L (12-78); ALBUMIN/GLOBULIN RATIO 0.9 (1.1-1.5); ALKALINE PHOSPHATASE 61 IU/L (46-116); ANION GAP 8 (8-16); ASPARTATE AMINO TRANSFERASE 21 U/L (10-37); BILIRUBIN,TOTAL 0.6 MG/DL (0.1-1.0); BLOOD UREA NITROGEN 23 MG/DL (7-18); BUN/CREATININE RATIO 22.3 (6.6-38.0); CALCIUM 8.8 MG/DL (8.5-10.1); CHLORIDE 104 MMOL/L (99-107); CREATININE 1.03 MG/DL (0.40-0.90); GLUCOSE 78 MG/DL (70-104); MAGNESIUM 1.8 MG/DL (1.5-2.4); POTASSIUM 3.5 MMOL/L (3.5-5.1); SODIUM 140 MMOL/L (135-145); TOTAL CARBON DIOXIDE 28.5 MMOL/L (24-32); TOTAL PROTEIN 6.4 G/DL (6.4-8.2); eGFR 51 ML/MIN
[2020-06-09] MEDS: K and/or MAG REPLACEMENT MC SCH ×2 (08:00→20:00)
[2020-06-09] MEDS ORDERED: levoTHYROXINE 25mcg tablet PO SCH (08:00)
[2020-06-09 10:00] VITALS: BP 138/54
[2020-06-09] MEDS: CefTRIAXone/D5W-Rocephin 1gm 50 ML IV SCH (11:20)
[2020-06-09] MEDS: lisinopril 20mg tablet PO SCH (11:20)
[2020-06-09] MEDS: azithromycin/NS 500mg/250ml 250 ML IV SCH (11:20)
[2020-06-09] MEDS: metoprolol tartrate 25mg tablet PO SCH ×2 (11:21→22:34)
[2020-06-09] MEDS: amiodarone 200mg tablet PO SCH (11:21)
[2020-06-09] MEDS: divalproex sod 125mg sprinkle cap PO SCH ×2 (11:21→22:33)
[2020-06-09] MEDS: CITALOpram 10mg tablet PO SCH (11:21)
[2020-06-09] MEDS: levoTHYROXINE 75mcg tablet PO SCH (11:21)
[2020-06-09] MEDS: amLODIPine 5mg tablet PO SCH (11:22)
[2020-06-09] MEDS: furosemide 20 MG/2 ML vial IV SCH ×2 (11:22→22:51)
[2020-06-09] MEDS: heparin, porcine 5000 units/ml vial SQ SCH ×2 (11:23→22:35)
[2020-06-09 18:00] VITALS: BP 142/59
--- NOTE | 2020-06-09 18:14 | NUR ---
Problems reprioritized. Patient report given, questions answered & plan of care reviewed with PALMA MORSE.
[2020-06-09 22:00] VITALS: BP 125/50
[2020-06-09] MEDS: lactobacillus rhamnosus 10,000 MMU CELLS/CAPSULE PO SCH (22:33)
[2020-06-10 06:00] VITALS: BP 120/47
[2020-06-10 06:32] LABS: BASOPHILS # (AUTO) 0.1 X10'3 (0-0.2); BASOPHILS % (AUTO) 0.9 % (0-1); EOSINOPHILS # (AUTO) 0.1 X10'3 (0-0.9); HEMATOCRIT 33.2 % (35.0-45.0); LYMPHOCYTES # (AUTO) 1.2 X10'3 (1.1-4.8); LYMPHOCYTES % (AUTO) 21.5 % (21-51); MEAN CORPUSCULAR HGB CONC 33.1 g/dL (33.0-36.5); MEAN CORPUSCULAR VOLUME 87.4 FL (78-98); MEAN PLATELET VOLUME 7.6 FL (7.4-10.4); MONOCYTES # (AUTO) 0.6 X10'3 (0-0.9); MONOCYTES % (AUTO) 11.4 % (2-12); NEUTROPHILS # (AUTO) 3.7 X10'3 (1.8-7.7); NEUTROPHILS % (AUTO) 65.2 % (42-75); PLATELET COUNT 160 X10'3 (140-440); RED CELL DISTRIBUTION WIDTH 15.6 % (11.5-14.5); WHITE BLOOD COUNT 5.7 X10'3 (4.5-11.0)
[2020-06-10] MEDS: ipratropium/albuterol 3ml nebule NEB SCH ×4 (07:00→19:25)
[2020-06-10 07:09] LABS: ALANINE AMINOTRANSFERASE 15 U/L (12-78); ALBUMIN/GLOBULIN RATIO 0.9 (1.1-1.5); ALKALINE PHOSPHATASE 59 IU/L (46-116); ANION GAP 9 (8-16); ASPARTATE AMINO TRANSFERASE 17 U/L (10-37); BILIRUBIN,TOTAL 0.5 MG/DL (0.1-1.0); BLOOD UREA NITROGEN 23 MG/DL (7-18); BUN/CREATININE RATIO 21.9 (6.6-38.0); CALCIUM 8.8 MG/DL (8.5-10.1); CHLORIDE 106 MMOL/L (99-107); CREATININE 1.05 MG/DL (0.40-0.90); GLUCOSE 94 MG/DL (70-104); MAGNESIUM 1.8 MG/DL (1.5-2.4); POTASSIUM 3.2 MMOL/L (3.5-5.1); SODIUM 143 MMOL/L (135-145); TOTAL CARBON DIOXIDE 28.5 MMOL/L (24-32); TOTAL PROTEIN 6.3 G/DL (6.4-8.2); eGFR 49 ML/MIN
--- NOTE | 2020-06-10 07:34 | NUR ---
Patient refused SVN tx @ this time. No Shortness of breath noted. pt resting comfortably c/o headache and wants to sleep NAD 93% 1lpm 53hr Addendum: 06/10/20 at 0735 by Darya Browning RT Amended: Links added.
[2020-06-10] MEDS: metoprolol tartrate 25mg tablet PO SCH ×2 (08:00→20:00)
[2020-06-10] MEDS: CefTRIAXone/D5W-Rocephin 1gm 50 ML IV SCH (08:44)
[2020-06-10] MEDS: CITALOpram 10mg tablet PO SCH (08:47)
[2020-06-10] MEDS: lactobacillus rhamnosus 10,000 MMU CELLS/CAPSULE PO SCH ×2 (08:47→20:24)
[2020-06-10] MEDS: amiodarone 200mg tablet PO SCH (08:47)
[2020-06-10] MEDS: divalproex sod 125mg sprinkle cap PO SCH ×2 (08:47→20:24)
[2020-06-10] MEDS: azithromycin 250mg tablet PO SCH (08:48)
[2020-06-10] MEDS: amLODIPine 5mg tablet PO SCH (08:48)
[2020-06-10] MEDS: furosemide 20 MG/2 ML vial IV SCH ×2 (08:49→20:26)
[2020-06-10] MEDS: heparin, porcine 5000 units/ml vial SQ SCH ×2 (08:49→20:26)
[2020-06-10] MEDS: levoTHYROXINE 75mcg tablet PO SCH (08:56)
[2020-06-10] MEDS: K and/or MAG REPLACEMENT MC SCH ×2 (08:56→20:37)
[2020-06-10] MEDS: potassium Cl 20 mEq SR tablet PO PRN ×3 (08:57→20:24)
[2020-06-10 10:00] VITALS: BP 113/42
--- NOTE | 2020-06-10 15:27 | NUR ---
Patient asleep and requested not to be awaken for SVN tx. No shortness of breath noted. 90% ra woke pt she did not want a bronchodilator at this time. NAD Addendum: 06/10/20 at 1528 by Darya Browning RT Amended: Links added.
[2020-06-10 18:00] VITALS: BP 127/47
[2020-06-10] MEDS: lisinopril 20mg tablet PO SCH (20:25)
[2020-06-10 22:00] VITALS: BP 126/46
[2020-06-11 02:00] VITALS: BP 142/55
[2020-06-11 06:00] VITALS: BP 140/59
[2020-06-11 06:42] LABS: BASOPHILS % (AUTO) 0.5 % (0-1); EOSINOPHILS % (AUTO) 0.6 % (0-6); HEMATOCRIT 34.3 % (35.0-45.0); HEMOGLOBIN 11.2 g/dl (12.0-16.0); LYMPHOCYTES # (AUTO) 1.2 X10'3 (1.1-4.8); LYMPHOCYTES % (AUTO) 17.4 % (21-51); MEAN CORPUSCULAR HEMOGLOBIN 28.5 PG (27.0-31.0); MEAN CORPUSCULAR HGB CONC 32.8 g/dL (33.0-36.5); MEAN CORPUSCULAR VOLUME 86.9 FL (78-98); MEAN PLATELET VOLUME 7.9 FL (7.4-10.4); MONOCYTES # (AUTO) 0.7 X10'3 (0-0.9); MONOCYTES % (AUTO) 9.7 % (2-12); NEUTROPHILS # (AUTO) 4.8 X10'3 (1.8-7.7); NEUTROPHILS % (AUTO) 71.8 % (42-75); PLATELET COUNT 161 X10'3 (140-440); RED BLOOD COUNT 3.95 X10'6 (4.20-5.60); RED CELL DISTRIBUTION WIDTH 16.2 % (11.5-14.5); WHITE BLOOD COUNT 6.7 X10'3 (4.5-11.0)
--- NOTE | 2020-06-11 06:42 | NUR ---
Problems reprioritized. Patient report given, questions answered & plan of care reviewed with MINI Gross.
[2020-06-11 06:58] LABS: ALANINE AMINOTRANSFERASE 14 U/L (12-78); ALBUMIN 2.9 G/DL (3.4-5.0); ALBUMIN/GLOBULIN RATIO 0.8 (1.1-1.5); ALKALINE PHOSPHATASE 61 IU/L (46-116); ANION GAP 8 (8-16); ASPARTATE AMINO TRANSFERASE 15 U/L (10-37); BILIRUBIN,TOTAL 0.6 MG/DL (0.1-1.0); BLOOD UREA NITROGEN 26 MG/DL (7-18); BUN/CREATININE RATIO 20.3 (6.6-38.0); CALCIUM 8.8 MG/DL (8.5-10.1); CHLORIDE 106 MMOL/L (99-107); CREATININE 1.28 MG/DL (0.40-0.90); GLUCOSE 89 MG/DL (70-104); MAGNESIUM 1.7 MG/DL (1.5-2.4); POTASSIUM 4.3 MMOL/L (3.5-5.1); SODIUM 144 MMOL/L (135-145); TOTAL CARBON DIOXIDE 29.9 MMOL/L (24-32); TOTAL PROTEIN 6.6 G/DL (6.4-8.2); eGFR 39 ML/MIN
[2020-06-11] MEDS: ipratropium/albuterol 3ml nebule NEB SCH ×2 (07:17→11:38)
[2020-06-11] MEDS: K and/or MAG REPLACEMENT MC SCH (08:00)
[2020-06-11] MEDS: levoTHYROXINE 75mcg tablet PO SCH (08:16)
[2020-06-11] MEDS: CITALOpram 10mg tablet PO SCH (08:17)
[2020-06-11] MEDS: CefTRIAXone/D5W-Rocephin 1gm 50 ML IV SCH (08:17)
[2020-06-11] MEDS: lactobacillus rhamnosus 10,000 MMU CELLS/CAPSULE PO SCH (08:17)
[2020-06-11] MEDS: divalproex sod 125mg sprinkle cap PO SCH (08:17)
[2020-06-11] MEDS: furosemide 20 MG/2 ML vial IV SCH (08:17)
[2020-06-11] MEDS: metoprolol tartrate 25mg tablet PO SCH (08:19)
[2020-06-11] MEDS: heparin, porcine 5000 units/ml vial SQ SCH (08:20)
[2020-06-11] MEDS: amLODIPine 5mg tablet PO SCH (08:20)
[2020-06-11] MEDS: amiodarone 200mg tablet PO SCH (08:20)
[2020-06-11] MEDS: azithromycin 250mg tablet PO SCH (08:20)
[2020-06-11 10:00] VITALS: BP 131/48
[2020-06-11] MEDS ORDERED: ibuprofen tablet 400 MG TABLET PO PRN (12:45)
[2020-06-11] MEDS ORDERED: CEFD300C3 PO (12:49)
== END 2020-06-11 14:35 | disposition home health service (06) | DRG 193 ==
LOC: ER 16:08 → ORTHO 4S 16:30 → UNDOADMIN 16:30 → ORTHO 4S 18:28 → CMPBEDREQ 21:53
PROVIDERS: ADMIT Family Medicine; ATTEND Family Medicine
DX: J18.9 Pneumonia, unspecified organism (principal); J96.01 Acute respiratory failure with hypoxia; G93.41 Metabolic encephalopathy; F02.80 Dementia in other diseases classified elsewhere, unspecified severity, without behavioral disturbance, psychotic disturbance, mood disturbance, and anxiety; G40.909 Epilepsy, unspecified, not intractable, without status epilepticus; G30.9 Alzheimer's disease, unspecified; E03.9 Hypothyroidism, unspecified; I10 Essential (primary) hypertension; I25.10 Atherosclerotic heart disease of native coronary artery without angina pectoris; I48.91 Unspecified atrial fibrillation; Z66 Do not resuscitate; Z20.828 Contact with and (suspected) exposure to other viral communicable diseases; Z90.710 Acquired absence of both cervix and uterus; Z82.49 Family history of ischemic heart disease and other diseases of the circulatory system; Z98.42 Cataract extraction status, left eye; Z98.41 Cataract extraction status, right eye; Z87.891 Personal history of nicotine dependence; Z88.6 Allergy status to analgesic agent; Z91.018 Allergy to other foods
CPT/HCPCS: 36415; 70544; 70551; 71045; 73610; 80053; 80164; 83735; 83880; 84443; 84550; 85025; 87081; 87635; 93005; 93306; 94640; 94760; 97116; 97161; 97530; 99285; G0378; J0456; J0696; J1644; J1940